=== PATIENT | male | born 1965 | race Caucasian/White ===

== ENCOUNTER 2021-11-27 13:12 | Inpatient (IN) | payer BC ==
[~2021-11-27] VITALS: Ht 193 cm; Wt 124.9 kg
--- NOTE | 2021-11-27 17:00 | NUR ---
Pt arrives from [facility] [place] via [place]. Pt drowsy, easily arouses to voice. He states pain in RUQ/RLQ 5/10 at this time. EMS transport provided fentanyl and dilaudid. Per report pt having emesis in transport, no nausea at this time. Hx includes HTN, ARSEN, pt states does not have CPAP d/t availability/cost. Surgical hx includes lyn, deviated septum repair, lasik eye surgery. Psoriasis, back pain, N/T in L arm r/t elbow injury. Field start IV in R AC flushes well, IVF infusing at 125ml/hr per order. Kept NPO at this time until MD rounds, pt oriented to room/unit, call light. Warm blankets provided. Pt ambulates to BR with SBA. no further needs. Dr Spann notified of pt arrival
--- NOTE | 2021-11-27 19:05 | NUR ---
REPORT RECEIVED FROM NADYA ROSADO. pt RESTING IN BED. SURGERY WIPE DOWN COMPLETE. AIR PUMPER AND SURGERY NURSE IN ROOM TO TAKE pt FOR SURGERY. CONSENT SIGNED.
--- NOTE | 2021-11-27 19:22 | NUR ---
Pt prepared to be taken to OR. Consent signed and educated about procedure, all questions answered. 1L LR bolus administered. IV ABX not verified at this time, telepharmacy notified to be promotions associate to OR. Presurgical wipedown complete, partial plates removed from teeth, jewelry/watch removed. Chart prepped. OR team in room to transport patient.
--- NOTE | 2021-11-27 20:53 | NUR ---
11/27/212052 Clare Urena 2046: PT ARRIVES TO PACU DROWSY, HE IS REACTIVE AND AROUSES TO STIMULATION EASILY.
--- NOTE | 2021-11-27 21:51 | NUR ---
pt BACK FROM SURGERY. DROWSY. ABLE TO AMBULATE FROM STRETCHER TO HOSPITAL BED INDEPENDENTLY. ASSESSMENT COMPLETE. BOWEL TONES HYPOACTIVE. ABD SOFT. INCISIONS WITH SMALL AMT SS FLUID. GOWN CHANGED. NON-ADHERANT GAUZE PAD APPLIED OVER MID ABD AND LOWER ABD LAP SITES. SCDS ON. IV SITE FLUSHED AND IVF INFUSING WNL. CRACKERS AND PO FLUIDS PROVIDED REQUESTED. CALL LIGHT IN REACH.
--- NOTE | 2021-11-27 23:08 | NUR ---
pt SLEEPING, AWAKENS TO VOICE. VSS. pt DENIES PAIN. SBA TO RESTROOM FOR 600 ML VOID AND BACK TO BED. SCDS ON. CPOX ON. TITRATED TO RA, SPO2 93%. SCHEDULED MEDICATION ADMINISTERED. SANDWICH BOX PROVIDED. NO ADDITIONAL REQUESTS.
--- NOTE | 2021-11-27 23:57 | NUR ---
POST OP VSS. pt RESTING IN BED. CPOX ON, SPO2 WNL ON RA. SCDS ON. LIGHTS OFF IN ROOM. NEW BAG IVF INFUSING WNL. CALL LIGHT IN REACH. pt DENIES ADDITIONAL REQUESTS.
--- NOTE | 2021-11-28 00:59 | NUR ---
pt SLEEPING, AWAKENS TO VOICE, SPO2 WNL ON RA. POST OP VSS. SBA TO RESTROOM FOR VOID AND BACK TO BED. SCDS ON. CPOX ON. CALL LIGHT IN REACH. pt DENIES ANY ADDITIONAL REQUESTS. IVF INFUSING WNL.
--- NOTE | 2021-11-28 02:20 | NUR ---
pt SLEEPING, AWAKENS TO VOICE. ASSESSMENT COMPLETE. BOWEL TONES ACTIVE X 4, ABD SOFT, pt DENIES PAIN. DRESSINGS INTACT WITH STERI STRIPS, SMALL AMT SS DRAINAGE. SBA TO RESTROOM FOR VOID AND BACK TO BED SCDS ON. IV ANTIBIOTIC INFUSING WNL. CALL LIGHT IN REACH. pt'S SON NOW IN ROOM. NO ADDITIONAL REQUESTS.
--- NOTE | 2021-11-28 02:45 | NUR ---
pt'S SON TO NURSES STATION LEAVING, STATES HIS DAD IS HAVING PAIN. pt RATES PAIN 5/10 IN LOWER ABDOMEN AT LAP SITE. PRN PAIN MEDICATION ADMINISTERED. ICE WATER REFILLED. CALL LIGHT IN REACH. NO ADDITIONAL NEEDS.
--- NOTE | 2021-11-28 06:06 | NUR ---
CALL LIGHT ANSWERED. pt BACK IN BED AFTER VOID IN RESTROOM. SCDS ON. IVF INFUSING WNL. VSS. pt RATES PAIN 5/10 IN ABDOMEN, PRN PAIN MEDICATION ADMINISTERED. CALL LIGHT IN REACH. NO ADDITIONAL REQUESTS.
--- NOTE | 2021-11-28 07:15 | NUR ---
Report received from Heide COVINGTON. Pt resting in bed with eyes closed, respirations even and unlabored, IVF infusing WNL. No needs identified at this time, will continue plan of care.
[2021-11-28] MEDS ORDERED: OMEPRAZOLE20 MG PO (07:49)
[2021-11-28] MEDS ORDERED: INDOMETHACIN50 MG PO (07:49)
[2021-11-28] MEDS ORDERED: ATORVASTATIN CA80 MG PO (07:50)
[2021-11-28] MEDS ORDERED: AMLODIPINE BES2.5 MG PO (07:50)
[2021-11-28] MEDS ORDERED: HUMIRA PEN PSO1 EACH SUB-Q (07:51)
[2021-11-28] MEDS ORDERED: LISINOPRIL-HCT1 EAC2 PO (07:53)
[2021-11-28] MEDS ORDERED: LOW DOSE ASPIRI81 MG PO (07:53)
--- NOTE | 2021-11-28 08:12 | NUR ---
Scheduled medications administered and assessment complete. Pt states feeling "100% better" after surgery, resting in bed, A+O, states no pain or needs. IV ABX infusing WNL. Pt tolerating regular diet. Instructed on how to care for incision sites after discharge. Pt independent to BR to void, QS. No needs at this time.
[2021-11-28] MEDS ORDERED: IBUPROFEN600 MG PO (08:44)
[2021-11-28] MEDS ORDERED: ACETAMINOPHEN500 MG PO (08:45)
[2021-11-28] MEDS ORDERED: OXYCODON-ACETA1 EAC2 PO (08:45)
--- NOTE | 2021-11-28 09:34 | NUR ---
IV pump alarming, resolved, pt has no further needs, states no pain. Call light in reach
--- NOTE | 2021-11-28 10:06 | NUR ---
CASE MANAGEMENT ASSESSMENT COMPLETED, PATIENT HAS NO NEEDS AT THIS TIME. PATIENT DISCHARGING HOME TODAY WITH . DEMOGRAPHIC INFORMATION UPDATED.
--- NOTE | 2021-11-28 10:45 | NUR ---
PT ALERT, ORIENTED AND READY FOR DC. HIS IS COMING FOR RIDE. PT SEEMS TO HAVE NO CONCERNS,WANTS TO GET BACK TO WORK,ENCOURAGED TO CHECK WITH NADYA ROSADO REGARDING BACK TO WORK INFO, PT ACKNOWLEDGED. NADYA ROSADO IN TO BEGIN DC, GAVE BLESSING AND WILL FOLLOW NEEDED
--- NOTE | 2021-11-28 18:35 | EKG ---
[facility] [address] [facility] [place] [address] Signed Normal sinus rhythm Minimal voltage criteria for LVH, may be normal variant Borderline ECG Confirmed by ALLEGRA OSORIO DO ([id number]) on 11/28/2021 6:35:42 PM Electronically Signed By: ALLEGRA OSORIO DO 11/28/21 1835 PATIENT NAME: JUMA CARVAJAL Electrocardiogram DATE OF : 63 PHYSICIAN: ALLEGRA OSORIO DO REPORT #: [id number] REPORT IS CONFIDENTIAL AND NOT TO BE RELEASED WITHOUT AUTHORIZATION
--- NOTE | 2021-11-28 21:03 | HP ---
[facility] [address] [place], [place] [address] Signed ADMISSION DATE: 11/27/2021 ADDENDED/REVISED REPORT: TIME OF EVALUATION: 6:35 p.m. PROBLEM: Severe right lower abdominal pain. 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 He presented to the emergency room earlier in the day, having had the onset of upper abdominal pain, which progressed ultimately to the right mid abdomen. A thorough evaluation by Dr. Shin in [place], was such that a strong consideration for appendicitis was made. He was noted to have an elevated white count and severe unrelenting pain and a CT scan was performed, which was interpreted as negative for appendicitis. I reviewed the situation with Dr. Shin and recommended transfer for further evaluation and assessment. A thorough evaluation included a Chem profile and CBC as well as an amylase and lipase level. Chem profile was essentially normal. Lipase is only 61. White count [place] [address], hematocrit 44. Urinalysis showed 1+ blood, 0 to 2 red cells, which is a long-standing finding for him according to Dr. Shin. The patient has had prior cholecystectomy approximately 8 years ago in the [facility]. He has no ongoing significant medical issues otherwise. A COVID-19 test was performed in [place], which was negative. Upon close discussion, the patient's pain began in the upper abdomen and migrated ultimately to the right lower quadrant, which has been difficult to control even with parental pain medication. He has had no diarrhea or blood per rectum. He has had no hematemesis or emesis otherwise. 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 He lives in [place]. He has grown children and 11 grandchildren. His , Lacie, was contacted following our visit and remains in [place] at this time. REVIEW OF SYSTEMS: He denies any shortness of breath or chest pain. He has had no hematemesis or blood per Electronically Signed By: NADEEM MACEDO MD 11/28/21 2103 PATIENT NAME: JUMA CARVAJAL HISTORY AND PHYSICAL DATE OF : 63 REPORT #: [id number] PHYSICIAN: NADEEM MACEDO MD PCP: NO PRIMARY CARE PHYSICIAN REPORT IS CONFIDENTIAL AND NOT TO BE RELEASED WITHOUT AUTHORIZATION [facility] [address] [place], [place] [address] Signed rectum. Denies any upper abdominal pain at this time. PHYSICAL EXAMINATION: GENERAL: This is a pleasant white man, who looks to be in moderate discomfort. He has no evidence of diaphoresis. HEENT: Mucous membranes are somewhat dry. Trachea is midline. CHEST: Shows normal respiratory excursion without tachypnea. HEART: Regular. ABDOMEN: Nondistended and somewhat obese. Rovsing sign at this time is negative. He has tenderness over McBurney's point. EXTREMITIES: Show no clubbing, cyanosis, or edema. IMAGING DATA: His CT scan was reviewed in detail. The coronal view shows the appendix to my examination showing small air bubbles within it and visualized and not massively dilated and no periappendiceal stranding. ASSESSMENT: His clinical history and exam are highly suggestive of acute abdomen, specifically related to appendicitis. I see no evidence of terminal ileum thickening or colitis nor sign of free air, anything to suggest ischemic bowel per se. He denies any family history of colon cancer or inflammatory bowel disease. The urinalysis does not show evidence of nephrolithiasis and the CT scan showed no evidence of stone or hydroureter. Interpretation of the CT scan was through an agency in [place]. I would recommend laparoscopy at this time after fluid bolus and administration of cefoxitin antibiotic. Whether the appendix is abnormal in appearance or not would recommend appendectomy. If there are other pathologies causing his symptoms and signs, I would recommend proceeding with remedy of those as appropriate. He said to have had cholecystectomy in the past in the [facility]; it would be unlikely that a retained stone in the duct would be accounting for this problem particularly since liver enzymes are normal and so on. The risks of bleeding, infection, failure of diagnosis, misdiagnosis, and need for other indicated procedures including open surgery were reviewed in detail with the patient and subsequently with his on the phone ([phone]). All parties are in agreement with the plan as described. We will proceed as described. ADDENDUM ([id number]): Additional history and review of additional information provided shows patient has been on indomethacin 50 mg capsule once a day as needed for pain of an unknown type, omeprazole 20 mg p.o. daily, amlodipine 2.5 mg p.o. daily, atorvastatin 80 mg p.o. Electronically Signed By: NADEEM MACEDO MD 11/28/219 PATIENT NAME: JUMA CARVAJAL HISTORY AND PHYSICAL DATE OF : 63 REPORT #: [id number] PHYSICIAN: NADEEM MACEDO MD PCP: NO PRIMARY CARE PHYSICIAN REPORT IS CONFIDENTIAL AND NOT TO BE RELEASED WITHOUT AUTHORIZATION [address] [address] Signed daily, Humira 80 mg injection biweekly and lisinopril hydrochlorothiazide 10/12.5 p.o. daily as well as enteric-coated aspirin 81 mg daily. His underlying ailment for which he takes Humira is psoriasis. He does have hypertension as described and dyslipidemia. Additionally, he has reflux. The additional medication should not impair or modify the clinical diagnosis of probable appendicitis and we will proceed as planned. I will additionally obtain a 12-lead EKG preoperatively given his age of 55 years, though this does not appear like an inferior myocardial infarction, however, unlikely that could be. MD WILLIAM Soto/MODL /[id number] cc: Dr. Kip [facility] Copies: ~ Electronically Signed By: NADEEM MACEDO MD 11/28/21 2103 PATIENT NAME: JUMA CARVAJAL HISTORY AND PHYSICAL DATE OF : 63 REPORT #: [id number] PHYSICIAN: NADEEM MACEDO MD PCP: NO PRIMARY CARE PHYSICIAN REPORT IS CONFIDENTIAL AND NOT TO BE RELEASED WITHOUT AUTHORIZATION
--- NOTE | 2021-11-28 21:03 | OR ---
[facility] [address] [place], [place] [address] Signed DATE OF OPERATION: 11/27/2021 SURGEON: Nadeem Macedo MD PREOPERATIVE DIAGNOSIS: Severe right lower abdominal pain and tenderness, high suspicion for appendicitis. POSTOPERATIVE DIAGNOSIS: Early acute appendicitis. PROCEDURES: 1. Laparoscopy with laparoscopic appendectomy. 2. Laparoscopic evaluation of remaining abdomen. ANESTHESIA: General endotracheal, Ayden Vázquez, PROCESS IMPROVEMENT ANALYST and local 10 mL of 0.25% Marcaine with epinephrine. 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 He began with central abdominal pain, which migrated to the right lower quadrant. He presented to the hospital at [facility] in [place] where he was thoroughly evaluated by Dr. Lesa Shin and thought clinically very likely to have acute appendicitis. He had an elevated white count of 13,000, normal urinalysis and liver enzymes and had tenderness at McBurney's point. Positive obturator sign and heel tap. A CT scan was performed in [place], which did not confirm appendicitis based on the radiologist evaluation. Given his clinical findings, he is still considered likely to have acute appendicitis and transferred by ambulance to [facility] for further evaluation and care. Of special note, he has undergone laparoscopic cholecystectomy about eight years ago in the [facility] and additionally takes Humira for psoriasis. He has no family history of inflammatory bowel disease or cancer. The patient and his by phone call understand well the risk of bleeding, infection, failure of diagnosis, misdiagnosis, need for open procedure and need for other indicated procedures as noted. Understanding this, they wished to proceed. FINDINGS: There is no sign of ascites or carcinomatosis. The appendix was directed laterally and posteriorly and had a whitish appearance with injection. No evidence of suppuration particularly. It was firm, but not hard and appeared to have early appendicitis. Electronically Signed By: NADEEM MACEDO MD 11/28/21 2103 PATIENT NAME: JUMA CARVAJAL OPERATIVE REPORT DATE OF : 63 REPORT #: [id number] PHYSICIAN: NADEEM MACEDO MD PCP: NO PRIMARY CARE PHYSICIAN REPORT IS CONFIDENTIAL AND NOT TO BE RELEASED WITHOUT AUTHORIZATION [facility] [address] [place], [place] [address] Signed Palpation of the organ once excised showed no tumor per se though the tip had inflammatory change and focal inflammation as well. The right colon and transverse colon were normal. The pylorus was identified and found to be normal without sign of perforated ulcer. The liver was normal. There was surgical absence of the gallbladder. The small bowel was run from the terminal ileum more proximally, showing no sign of Meckel's diverticulum, inflammatory bowel disease or other abnormality. It is my assessment that he likely had early appendicitis. DESCRIPTION OF PROCEDURE: The patient was brought to the operating room, given a general endotracheal anesthetic. Preoperative antibiotic cefoxitin was given. Sequential compression device stockings were used and heparin was administered subcutaneously in the operating room. The abdomen was clipped and prepared with chlorhexidine solution and draped sterilely. An infraumbilical incision was made using an open Mariano cannula technique. Pneumoperitoneum was achieved to a level of 14 mmHg of carbon dioxide gas. Intra-abdominal inspection showed no sign of ascites or carcinomatosis. An additional epigastric port was placed under direct visualization and the camera replaced to that site. Single hand manipulation of the cecum failed to identify the appendix. On that basis, the right lower quadrant 5 mm port was placed. With two-hand manipulation, the small bowel was manipulated out of the way. The terminal ileum appeared normal and the antimesenteric fat pad of tree was identified indicating the terminal ileum. The cecum was ultimately rolled to the central aspect and the appendix was found. A fatty mesentery was noted. The appendix was whitish with some injection in the tip with specific inflammatory change. There was no sign of suppuration, perforation, or obvious purulence. Appendectomy was deemed advisable normal or not. A window was created between the appendix and the mesoappendix at the base of the cecum and an Endo BOB stapling device was used to transect the appendix flushed with the cecum. Two loads were required to secure the mesoappendix fully. The appendix was extracted through the infraumbilical port trocar and gently palpated and found to have inflammatory change of the tip, but nowhere else. Irrigation was undertaken in the retrocecal area. There was a small amount of bleeding associated with the staple line and dissection there and small amounts of cautery were applied with all due care as well as some clips. Hemostasis appeared complete. Irrigation was undertaken. The terminal ileum was then elevated and the bowel run in a retrograde fashion as far as possible well beyond 2 feet showing no sign of inflammatory bowel disease, stricture, perforation, creeping fat or Meckel's diverticulum. The colon was then examined thoroughly in the right side and transverse appeared normal. The undersurface of the Electronically Signed By: NADEEM MACEDO MD 11/28/21 1271 PATIENT NAME: JUMA CARVAJAL OPERATIVE REPORT DATE OF : 63 REPORT #: [id number] PHYSICIAN: NADEEM MACEDO MD PCP: NO PRIMARY CARE PHYSICIAN REPORT IS CONFIDENTIAL AND NOT TO BE RELEASED WITHOUT AUTHORIZATION [facility] [address] [place], [place] [address] Signed liver was identified showing a scar from prior cholecystectomy. The pylorus and antrum of the stomach were identified. There was no inflammatory fluid or sign of perforation. To the left of the falciform, the left lateral segment of liver was normal as was the stomach. There was no sign of inflammatory fluid or other abnormality elsewhere. Attention was returned to the cecal area. There appeared to be good hemostasis. Irrigation was undertaken. Excess irrigation fluid suctioned free. Tisseel fibrin glue was applied to the area as the dissection had been associated with a minimal amount of bleeding previously, although hemostatic. Tisseel applied gave great confidence of good security of hemostasis. Excess irrigation was suctioned free. Examination of the sigmoid showed it to be normal. The trocars were then removed under direct visualization showing no sign of bleeding. The infraumbilical fascial incision was reapproximated with interrupted 0 Vicryl suture. A 10 mL of 0.25% Marcaine was injected locally. Skin was closed with interrupted 3-0 Vicryl. Steri-Strips were applied. Blood loss was less than 20 mL. Sponge, needle and instrument counts were reported as correct x3. MD WILLIAM Soto/CHRISTL /[id number] cc: Dr. Lesa Shin, [place], [place] Copies: ~ Electronically Signed By: NADEEM MACEDO MD 11/28/21 2103 PATIENT NAME: JUMA CARVAJAL OPERATIVE REPORT DATE OF : 63 REPORT #: [id number] PHYSICIAN: NADEEM MACEDO MD PCP: NO PRIMARY CARE PHYSICIAN REPORT IS CONFIDENTIAL AND NOT TO BE RELEASED WITHOUT AUTHORIZATION
--- NOTE | 2021-11-29 10:34 | PATH ---
[facility] [address] [place], [place] [address] Signed SPECIMEN(S): A APPENDIX SPECIMEN SOURCE: A. APPENDIX CLINICAL HISTORY: Appendicitis (probable early appendicitis), right lower quadrant abdominal pain. FINAL PATHOLOGIC DIAGNOSIS: Appendix, appendectomy: - Appendix with focal minimal mucosal active inflammation. - See comment. COMMENT: The appendix was entirely submitted for histologic examination. The findings are nonspecific, but could represent early acute appendicitis. Clinical correlation is required. NAL:cml:C2NR MICROSCOPIC EXAMINATION: Histologic sections of all submitted blocks are examined by light microscopy. These findings, together with the gross examination, support the pathologic diagnosis. GROSS DESCRIPTION: The specimen, labeled "ID, appendix," is received in formalin and consists of Specimen: Appendix with mesoappendix. Dimensions: 5.0 x 0.7 cm. Serosa: Struble-armendariz, smooth. Defect: Not grossly identified. Inking: Staple line is inked black. Mucosa: Struble-red. Fecalith: Not grossly identified. Additional: None. Specimen is entirely submitted in cassettes (A1-A2). JS (under the direct supervision of a pathologist) The Gross Description was prepared using a voice recognition system. The report was reviewed for accuracy; however, sound-alike word errors, addition and/or deletions may occur. If there is any question about this report, please contact Client Services. PATIENT NAME: JUMA CARVAJAL PATHOLOGY DATE OF : 63 REPORT #: [id number] PHYSICIAN: [facility] PCP: NO PRIMARY CARE PHYSICIAN REPORT IS CONFIDENTIAL AND NOT TO BE RELEASED WITHOUT AUTHORIZATION [facility] [address] [place], [place] [address] Signed PERFORMING LABORATORY: The technical component was performed by [facility] [address] (Tin Whiz Machine Operator: Enid Hess MD; CLIA# [id number]). Professional interpretation was performed by [facility], [address] [address] (CLIA# [id number]). Diagnostician: Jazz Han MD Pathologist Electronically Signed 11/29/2021 Copies: ~ PATIENT NAME: JUMA CARVAJAL PATHOLOGY DATE OF : 63 REPORT #: [id number] PHYSICIAN: [facility] PATHOLOGY PCP: NO PRIMARY CARE PHYSICIAN REPORT IS CONFIDENTIAL AND NOT TO BE RELEASED WITHOUT AUTHORIZATION
== END 2021-11-28 10:55 | disposition home or self-care (01) | DRG 343 ==
LOC: MS 13:12
PROVIDERS: ADMIT Surgery; ATTEND Surgery
PROC: 0DTJ4ZZ Resection of Appendix, Percutaneous Endoscopic Approach (ICD-10-PCS; principal; 2021-11-27 19:09)
DX: K35.80 Unspecified acute appendicitis (principal); Z20.822 Contact with and (suspected) exposure to COVID-19
CPT/HCPCS: 00840; 93005; 93010; 96372; 96374; 96375; 96376; A9270; G0378; J0131; J0330; J0694; J1100; J1644; J1885; J2001; J2405; J2704; J3010; J7121